=== PATIENT | female | born 1950 | race Caucasian/White ===

== ENCOUNTER → 2017-12-20 | Outpatient (CLI) | payer OTHER, BC ==
[~2017-12-20] MED LIST: MIRALAX17 GM PO; NAPROSYN250 MG PO; NO HOME MEDS; PRILOSEC OTC20 MG PO
== END | disposition home or self-care (01) ==
DX: R13.11 Dysphagia, oral phase (principal); Z87.19 Personal history of other diseases of the digestive system; Z86.011 Personal history of benign neoplasm of the brain
CPT/HCPCS: 92611 GN; G8996 GN; G8997 GN; G8998 GN

== ENCOUNTER → 2018-02-15 | Outpatient (CLI) | payer OTHER, BC ==
[~2018-02-15] VITALS: Ht 165.1 cm; Wt 71.7 kg
[~2018-02-15] MED LIST changes: +DAILY VALUE1 EACH PO; +EFFEXOR75 MG PO; +NEURONTIN100 MG PO; +PRAVACHOL20 MG PO; +TYLENOL EXTRA500 MG PO
== END | disposition home or self-care (01) ==
LOC: AMB 07:40
PROC: 0DBK8ZX Excision of Ascending Colon, Via Natural or Artificial Opening Endoscopic, Diagnostic (ICD-10-PCS; principal; 2018-02-15)
DX: Z12.11 Encounter for screening for malignant neoplasm of colon (principal); K57.30 Diverticulosis of large intestine without perforation or abscess without bleeding; D12.2 Benign neoplasm of ascending colon; Z86.010 Personal history of colon polyps; K64.8 Other hemorrhoids; K62.89 Other specified diseases of anus and rectum; R48.2 Apraxia; K21.9 Gastro-esophageal reflux disease without esophagitis; K59.09 Other constipation; E78.00 Pure hypercholesterolemia, unspecified; M85.80 Other specified disorders of bone density and structure, unspecified site; L40.50 Arthropathic psoriasis, unspecified; Z90.49 Acquired absence of other specified parts of digestive tract; Z82.62 Family history of osteoporosis; Z82.61 Family history of arthritis; Z80.51 Family history of malignant neoplasm of kidney; Z80.42 Family history of malignant neoplasm of prostate; Z80.8 Family history of malignant neoplasm of other organs or systems; Z80.3 Family history of malignant neoplasm of breast; Z80.0 Family history of malignant neoplasm of digestive organs; Z87.891 Personal history of nicotine dependence; Z79.82 Long term (current) use of aspirin; Z88.8 Allergy status to other drugs, medicaments and biological substances
CPT/HCPCS: 88305; 94640; J1200; J2250; J2405